=== PATIENT | male | born 1950 | race Caucasian/White ===

== ENCOUNTER 2021-05-24 10:03 | Outpatient (CLI) | payer OTHER, SELFPAY ==
--- NOTE | ~2021-05-24 | MR_ITS ---
EXAMINATION: MR humerus RT wo con DATE: 05/24/2021 12:13 INDICATION: Strain of the muscle, fascia and tendon of the long head biceps. Right arm injury 3 month s prior. TECHNIQUE: Magnetic resonance imaging (MRI) of the right upper arm from the shoulder through the supr acondylar region of the distal humerus was performed without intravenous contrast. Sequences included axial, sagittal and coronal T1-weighted FSE and fluid sensitive FSE STIR. COMPARISON: None. FINDINGS: Alignment is normal. Normal bone marrow signal throughout with no fracture or pathologic marrow repla cing process. There is a tear at the distal myotendinous junction of the long head biceps tendon with proximal retraction and accordioning of the torn tendon at the level of the mid muscle belly. There is mild surrounding muscular edema. The more proximal long head of the biceps tendon appears normally located at the intertubercular groove. The intra-articular portion of the long head biceps tendon is not diagnostically evaluated due to the large field of view on the sagittal and coronal images. The distal biceps brachii tendon is also not evaluated as it extends beyond the distal margin of the fiel d-of-view. There are postoperative changes at the greater tuberosity consistent with prior supraspina tus tendon repair. Normal alignment at the right glenohumeral joint. The anterior and posterior labru m are normal. The superior and inferior labrum along with the rotator cuff tendons not diagnostically evaluated due to the large [id number]-tz-rjcj on the sagittal and coronal images. If diagnostic assessmen t of the glenohumeral joint, labrum, rotator cuff and intra-articular long head biceps tendon are req uired would recommend a smaller field of view dedicated right shoulder MRI for further evaluation. In cidental 1.5 cm and 1.1 cm T2 hyperintense likely cysts or hemangiomas in the right hepatic lobe. IMPRESSION: 1. Tear of the distal myotendinous junction of the long head biceps tendon at the midportion of the m uscle belly. Reviewed, dictated and finalized at location A. IMPRESSION: 1. Tear of the distal myotendinous junction of the long head biceps tendon at t he midportion of the muscle belly.
== END 2021-05-24 10:04 | disposition home or self-care (01) ==
PROVIDERS: PCP Family Medicine; Visit Provider Nurse Practitioner Family
DX: S46.119A Strain of muscle, fascia and tendon of long head of biceps, unspecified arm, initial encounter (principal)
CPT/HCPCS: 73218

== ENCOUNTER 2021-08-30 02:00 | Day surgery (SDC) | payer OTHER, SELFPAY ==
[2021-08-21 13:13] VITALS: BMI 22.1
[2021-08-30 09:11] VITALS: BP 139/81; PULSE 75; RESP 16; TEMP 36.3; O2SAT 98; BMI 22.5
[2021-08-30] MEDS: LACTATED RINGERS 1,000 ML 150 ML IV CONT (09:29)
--- NOTE | 2021-08-30 09:36 | WPDGICN ---
Assessment and Plan Assessment and plan (1) Epigastric abdominal pain: Code(s): R10.13 - Epigastric pain Status: Acute Assessment and Plan: Patient has had intermittent epigastric pain for many years. Now on pantoprazole 40mg p.o. daily. Plan is for EGD to assess more thoroughly. He reports having had surgery for pyloric stenosis as an . He also has had a history of peptic ulcer disease by upper GI in the past. Currently on pantoprazole, further recommendations will be given after endoscopy. (2) History of peptic ulcer: Code(s): Z87.11 - Personal history of peptic ulcer disease Status: Acute GI Consult Note Consult date/time: 08/30/21 09:36 HPI: Dedrick Balbuena is a 71 year old male Presents for EGD. Patient has a long history of epigastric pain. He had more significant pain several weeks ago. When he was younger he had several upper GI is which suggested peptic ulcer disease. Patient currently maintained on pantoprazole 40mg p.o. daily. He denies any bleeding or weight loss. He reports as an he had pyloric stenosis requiring surgery. Family history is noncontributory. Review of Systems Review of Systems: All systems reviewed & are unremarkable except as noted in HPI and below PMFSH Past Medical History Medical History Biceps rupture, proximal BMI 22.0-22.9, adult Degenerative joint disease of cervical and lumbar spine Duodenal ulcer Enlarged prostate Fatigue Hypertension Pain of right humerus Rotator cuff tendonitis Rupture of proximal biceps tendon Family History Family History Other Bone cancer Lung cancer Social History Social History Smoking status: Never smoker Alcohol intake: current Alcohol use details: Socially at holidays Living arrangements: with family Spiritual care concerns: No Meds Home Medications and Allergies Home Medications Medication Instructions Recorded Confirmed Type celecoxib 200 mg capsule 200 mg PO BID #60 cap 12/27/20 08/21/21 Rx tlvwzrqy-broyxsbj-nglrf acid 400 1 tablet PO DAILY #30 tablet 12/27/20 08/21/21 Rx mcg-vit K 20 mcg-lycop 300 mcg tablet pregabalin 150 mg capsule 150 mg PO BID 12/27/20 08/21/21 History tamsulosin 0.4 mg capsule 0.4 mg PO DAILY #30 cap 12/27/20 08/21/21 Rx vit C 250 mg-vit E 90 mg-zinc 40 1 tablet PO BID #30 cap 12/27/20 08/21/21 Rx mg-copper 1 lq-ypxhjy-tptsoo capsule aspirin 81 mg tablet,delayed 81 mg PO DAILY 05/05/21 08/21/21 History release amlodipine 5 mg tablet 5 mg PO DAILY 06/27/21 08/21/21 History amitriptyline 10 mg PO DAILY 08/21/21 08/21/21 History omega-3 fatty acids-vitamin E 1 cap PO DAILY 08/21/21 08/21/21 History [Fish Oil] pantoprazole 40 mg PO DAILY 08/21/21 08/21/21 History Allergies Allergy/AdvReac Type Severity Reaction Status Date / Time Sulfa (Sulfonamide Allergy Mild Unknown Verified 08/30/21 09:10 Antibiotics) Vital Signs Vital Signs - 24 hr 08/30/21 09:11 Temperature 97.4 F L Pulse Rate 75 Respiratory Rate 16 Blood Pressure 139/81 Pulse Oximetry 98 Exam Narrative: Physical exam reveals patient to be alert. Vital signs stable. HEENT exam is unremarkable. Patient is anicteric. Lungs are clear to auscultation and percussion. Heart is without murmur or extra sounds. Abdominal exam bowel sounds are present soft nontender with no organomegaly.
--- NOTE | 2021-08-30 09:38 | P.PNAN_ITS ---
Anes - Initial Pre Proc Eval Procedure: Operation Date: 08/30/21 10:00 Proposed Procedures p Esophagogastroduodenoscopy - Lorenzo Avila MD Date/Time: 08/30/21 09:38 Surgeon: Lorenzo Avila MD Pre Op Diagnosis: epigastric pain Patient Data Age: 71 Gender: M Height: 1.7 m Weight: 65.3 kg Last Vital Signs Temp 97.4 F L 08/30/21 09:11 Pulse 75 08/30/21 09:11 Resp 16 08/30/21 09:11 BP 139/81 08/30/21 09:11 Pulse Ox 98 08/30/21 09:11 Allergies Allergy/AdvReac Type Severity Reaction Status Date / Time Sulfa (Sulfonamide Allergy Mild Unknown Verified 08/30/21 09:10 Antibiotics) Home Medications Medication Instructions Recorded Confirmed Type celecoxib 200 mg capsule 200 mg PO BID #60 cap 12/27/20 08/21/21 Rx zmbbxnek-joxyjlau-pctps acid 400 1 tablet PO DAILY #30 tablet 12/27/20 08/21/21 Rx mcg-vit K 20 mcg-lycop 300 mcg tablet pregabalin 150 mg capsule 150 mg PO BID 12/27/20 08/21/21 History tamsulosin 0.4 mg capsule 0.4 mg PO DAILY #30 cap 12/27/20 08/21/21 Rx vit C 250 mg-vit E 90 mg-zinc 40 1 tablet PO BID #30 cap 12/27/20 08/21/21 Rx mg-copper 1 jl-imqfca-rapglr capsule aspirin 81 mg tablet,delayed 81 mg PO DAILY 05/05/21 08/21/21 History release amlodipine 5 mg tablet 5 mg PO DAILY 06/27/21 08/21/21 History amitriptyline 10 mg PO DAILY 08/21/21 08/21/21 History omega-3 fatty acids-vitamin E 1 cap PO DAILY 08/21/21 08/21/21 History [Fish Oil] pantoprazole 40 mg PO DAILY 08/21/21 08/21/21 History Patient hx anesthesia problems: none Family hx anesthesia problems: none Results Review: All pre-operative results and documents have been reviewed as part of the pre-operative evaluation. [facility] Past Medical History Medical History Biceps rupture, proximal BMI 22.0-22.9, adult Degenerative joint disease of cervical and lumbar spine Duodenal ulcer Enlarged prostate Fatigue Hypertension Pain of right humerus Rotator cuff tendonitis Rupture of proximal biceps tendon Family History Family History Other Bone cancer Lung cancer Social History Social History Smoking status: Never smoker Alcohol intake: current Alcohol use details: Socially at holidays Living arrangements: with family Spiritual care concerns: No Anes - Eval Final PreProcedure Day of Procedure 08/30/21 09:38 Patient weight: normal Lungs: clear to auscultation Airway: Mallampati scale class II Neurological: alert and oriented Last oral intake: >/= 8 hours ASA classification: II Emergent: no Anesthetic plan: proceed Anesthesia type and monitoring: general GIVS and standard monitoring Results Review: All pre-operative results and documents have been reviewed as part of the pre-operative evaluation. Informed Consent: The patient's anesthetic plan and its attendant risks and benefits were discussed with the patient/family/POA. Questions were solicited and answers provided to the satisfaction of the patient/family/POA.
[2021-08-30 09:55] VITALS: BP 124/83; PULSE 77; RESP 17; O2SAT 98
[2021-08-30 10:05] VITALS: BP 130/88; PULSE 70; RESP 17; O2SAT 100
[2021-08-30 10:15] VITALS: BP 140/93; PULSE 65; RESP 12; O2SAT 100
== END 2021-08-30 10:30 | disposition home or self-care (01) ==
PROVIDERS: PCP Family Medicine; Visit Provider Internal Medicine Gastroenterology
PROC: 0DJ08ZZ Inspection of Upper Intestinal Tract, Via Natural or Artificial Opening Endoscopic (ICD-10-PCS; CPT 43235; principal; 2021-08-30 10:00)
DX: R10.13 Epigastric pain (principal); Z87.11 Personal history of peptic ulcer disease; I10 Essential (primary) hypertension; N40.0 Benign prostatic hyperplasia without lower urinary tract symptoms; Z79.82 Long term (current) use of aspirin
CPT/HCPCS: 43239; 87081; J2001; J2704; J7120

== ENCOUNTER → 2022-04-10 09:11 | Outpatient (CLI) | payer OTHER, SELFPAY ==
--- NOTE | ~2022-04-10 | XR_ITS ---
XR lumbar spine 2-3V DATE: 04/10/2022 09:36 INDICATION: Low back pain TECHNIQUE: AP, lateral, coned lateral lumbosacral views COMPARISON: 11/14/2016 lumbar spine FINDINGS: Diffuse osteopenia. There is severe degenerative disc disease at L4-5 and L5-S1. There is grade 1 anterolisthesis at L5-S1, stable since. Prominent degenerative change at the apophyseal joints in the lower lumbar and lumbosacral area. L5 s pondylolysis may be present. The sacroiliac joints are intact. Abdominal aortic calcification without apparent aneurysm. IMPRESSION: Severe degenerative disc disease at L4-5 and L5-S1; the L4-5 disc space is dramatically i ncreased compared to 11/14/2016 Grade 1 anterolisthesis at L5-S1, possibly due to L5 pars defects Osteopenia Reviewed, dictated and finalized at location B. IMPRESSION: Severe degenerative disc disease at L4-5 and L5-S1; the L4-5 disc s pace is dramatically increased compared to 11/14/2016 Grade 1 anterolisthesis at L5-S1, possibly due to L5 pars defects Osteopenia
== END ==
PROVIDERS: PCP Physician Assistant Medical; Visit Provider Physician Assistant Medical
DX: M47.817 Spondylosis without myelopathy or radiculopathy, lumbosacral region (principal)
CPT/HCPCS: 72100

== ENCOUNTER 2022-04-13 12:57 | Outpatient (CLI) | payer OTHER, SELFPAY ==
--- NOTE | ~2022-04-13 | DEXA_ITS ---
Bone Density Report Name: MAYANK FELDER Age: 71 Sex: Male Ethnicity: White Date of : 1950 Indication: screening for osteoporosis; Referring Provider: TAYE MOMIN Study: Bone densitometry was performed. Exam Date: April 13, 2022 Accession number: [id number] Bone Density: Region BMD T-score Z-score Classification AP Spine(L1, L2, L3) 0.877 -1.8 -0.8 Osteopenia Femoral Neck (Left) 0.588 -2.5 -1.2 Osteoporosis Total Hip (Left) 0.776 -1.7 -0.9 Osteopenia Femoral Neck (Right) 0.620 -2.3 -1.0 Osteopenia Total Hip (Right) 0.763 -1.8 -1.0 Osteopenia Total Hip Mean 0.769 -1.8 -1.0 Osteopenia World Health Organization criteria for BMD impression classify patients as: Normal (T-score at or above -1.0), Osteopenia (T-score between -1.0 and -2.5), or Osteoporosis (T-score at or below -2.5). 10-year Fracture Risk: FRAX not reported because: Some T-score for Spine Total or Hip Total or Femoral Neck at or below -2.5 Clinical Information Provided by Patient: Patient maximum height was 67 Impression: The patient has osteoporosis, based on the Left Femoral Neck T-score. Discussion: INCREASED RISK OF FRACTURE. BONE DENSITY IS UNDESIRABLY LOW AT ONE OR MORE SKELETAL SITES, CONSISTENT WITH OSTEOPOROSIS. This patient's lowest T-score meets the World Health Organization's (WHO) criteria for osteoporosis at one or more sites (T-score -2.5 or below). In untreated patients, the risk of osteoporotic fracture increases approximately two-fold for each 1.0 SD decrease in T-score. Low bone density is not the only risk factor for fracture; also consider factors such as patient's age, frailty or poor health, risk of falling, risk of injury, previous osteoporotic fracture, family history of osteoporosis, cigarette smoking, low body weight, etc. Not everyone with low bone mineral density has osteoporosis; osteomalacia and other metabolic bone disorders should also be considered. Patients who have osteoporosis should be evaluated for specific diseases and conditions (secondary causes) that may cause or contribute to bone loss. The National Osteoporosis Foundation (NOF) recommends pharmacologic intervention for men with BMD at this level (a T-score of -2.5 or below). The patient should follow a healthful lifestyle (good nutrition with adequate calcium and vitamin D, and appropriate weight-bearing exercise). Follow-Up: Consider repeating this study in 2 years to reassess this patient's status, or sooner if there is some new clinical indication. Reported by: ANAMARIA on 04/13/2022 1:20:00 PM. Reviewed, dictated and finalized at location A. EVAN
== END 2022-04-13 12:58 | disposition home or self-care (01) ==
PROVIDERS: PCP Family Medicine; Visit Provider Physician Assistant Medical
DX: M85.88 Other specified disorders of bone density and structure, other site (principal); M81.0 Age-related osteoporosis without current pathological fracture; M85.851 Other specified disorders of bone density and structure, right thigh
CPT/HCPCS: 77080

== ENCOUNTER → 2022-04-26 08:46 | Outpatient (CLI) | payer OTHER, SELFPAY ==
--- NOTE | ~2022-04-26 | MR_ITS ---
EXAMINATION: MR lumbar spine wo con DATE: 04/26/2022 09:10 INDICATION: Degenerative disc disease with chronic worsening low back pain and bilateral leg weakness TECHNIQUE: Magnetic resonance imaging (MRI) of the lumbar spine was performed without intravenous con trast. Sequences included sagittal T2-weighted FSE, sagittal T2-weighted FS FSE, sagittal T1-weighted FSE, and axial T2-weighted FSE. COMPARISON: 04/10/2022 and 11/14/2016 FINDINGS: L5 spondylolysis with chronic bilateral pars interarticularis defects and 8 mm anterolisthesis of L5 on S1. There is severe associated disc height loss at L5-S1 with remodeling of the endplates and like ly secondary 20% posterior vertebral body height loss at L5. Additional severe disc height loss with degenerative endplate remodeling and fibrovascular endplate changes at L4-L5. Marrow signal is otherw ise normal. The more cephalad vertebral body and disc heights are normal. The conus medullaris termin ates at L2. There is normal signal in the caudal spinal cord. 2.8 cm cyst at the upper pole of the le ft kidney. The following disc levels are specifically discussed: T12-L1: The disc does not extend beyond the endplate margin. There is mild bilateral facet joint oste oarthritis. There is no neural foraminal stenosis. There is no central canal stenosis. L1-L2: Disc is mildly bulging. There is mild bilateral facet joint osteoarthritis. There is mild left neural foraminal stenosis. There is no central canal stenosis. L2-L3: Disc is mildly bulging. There is mild right facet joint osteoarthritis. There is mild bilatera l neural foraminal stenosis. There is minimal central canal stenosis. L3-L4: Disc is mildly bulging. There is hypertrophy of the ligamentum flavum. There is mild bilatera l facet joint osteoarthritis. There is mild bilateral neural foraminal stenosis. There is mild centra l canal stenosis. L4-L5: Annular fissure and small posterior disc osteophyte complex. There is hypertrophy of the ligam entum flavum. There is severe bilateral facet joint osteoarthritis. There is moderate bilateral neur al foraminal stenosis. There is mild to moderate central canal stenosis. L5-S1: Annular fissure with minimal material overlying the otherwise uncovered posterior aspect of th e S1 endplate. There is mild hypertrophy of the ligamentum flavum. Along the bilateral pars interarti cularis defects there is moderate bilateral facet joint osteoarthritis. There is severe bilateral calos ral foraminal stenosis with the exiting L5 nerve roots appearing compressed between the posterolatera l margins of the superior endplate of S1 and the pedicles of L5. There is mild central canal stenosis . IMPRESSION: 1. Severe lower lumbar spondylosis with chronic L5 spondylolysis and grade 1 anterolisthesis of L5 on S1. Reviewed, dictated and finalized at location B. IMPRESSION: 1. Severe lower lumbar spondylosis with chronic L5 spondylolysis and grade 1 an terolisthesis of L5 on S1.
== END ==
PROVIDERS: PCP Family Medicine; Visit Provider Physician Assistant Medical
DX: G89.29 Other chronic pain (principal); M51.36 Other intervertebral disc degeneration, lumbar region; M54.50 Low back pain, unspecified; M85.80 Other specified disorders of bone density and structure, unspecified site; M47.816 Spondylosis without myelopathy or radiculopathy, lumbar region; M43.17 Spondylolisthesis, lumbosacral region
CPT/HCPCS: 72148

== ENCOUNTER → 2023-05-21 09:59 | Outpatient (CLI) | payer OTHER, SELFPAY ==
--- NOTE | ~2023-05-21 | XR_ITS ---
XR_[id number]_CR 05/21/2023 10:18 Indication: Cervicalgia Procedure: 4 view cervical spine Comparison: No prior studies for comparison. Findings: There is mild disc narrowing at C4-5. There is significant disc narrowing at C6-7 with endp late degenerative change. There is also facet hypertrophy at this level. Lung apices are normal. [place] toid process is grossly unremarkable, although evaluation is limited. No prevertebral soft tissue swe lling. There is mild additional levels of degenerative change of the facet and uncinate processes. Impression: 1: Mild-moderate cervical spondylosis, most advanced at C6-7. Reviewed, dictated and finalized at location L. Impression: 1: Mild-moderate cervical spondylosis, most advanced at C6-7.
== END ==
PROVIDERS: PCP Family Medicine; Visit Provider Physician Assistant Medical
DX: M54.2 Cervicalgia (principal); M43.02 Spondylolysis, cervical region
CPT/HCPCS: 72040

== ENCOUNTER 2024-09-09 13:38 | Outpatient (CLI) | payer OTHER, SELFPAY ==
--- NOTE | ~2024-09-09 | MR_ITS ---
EXAMINATION: MR lumbar spine wo con DATE: 09/09/2024 14:14 INDICATION: Low back pain. Lumbar radiculopathy. TECHNIQUE: Magnetic resonance imaging (MRI) of the lumbar spine was performed without intravenous con trast. Sequences included sagittal T2-weighted FSE, sagittal T2-weighted FS FSE, sagittal T1-weighted FSE, and axial T2-weighted FSE. COMPARISON: Lumbar spine MRI 04/26/2022 FINDINGS: There is 6 degrees levocurvature of lumbar spine. There are chronic bilateral L5 pars defec ts. There is 10 mm anterolisthesis of L5 on S1. There is mild chronic height loss of L5 vertebral bod y posteriorly. There is moderately decreased disc height at L3-L4 and severely decreased disc height at L4-L5 and L5-S1. The distal spinal cord signal intensity is normal. The conus medullaris is at L1- L2. The following disc levels are specifically discussed: L1-L2: The disc is bulging. There is mild bilateral facet joint osteoarthritis. There is no neural fo raminal stenosis. There is mild central canal stenosis. L2-L3: The disc is bulging. There is moderate bilateral facet joint osteoarthritis. There is mild dwayne ateral neural foraminal stenosis. There is mild central canal stenosis. L3-L4: The disc is bulging. There is moderate right and severe left facet joint osteoarthritis. There is mild bilateral neural foraminal stenosis. There is mild central canal stenosis. L4-L5: The disc is bulging and has an annular fissure. There is severe bilateral facet joint osteoart hritis. There is moderate bilateral neural foraminal stenosis. There is mild central canal stenosis. L5-S1: The disc does not extend beyond the endplate margin. There is severe bilateral facet joint ost eoarthritis. There is moderate right and severe left neural foraminal stenosis. There is mild central canal stenosis. IMPRESSION: 1. Severe lumbar spondylosis, mildly worsened from 04/26/2022. 2. Chronic bilateral L5 pars defects with grade 2 anterolisthesis of L5 on S1. Reviewed, dictated and finalized at location A.
== END 2024-09-09 13:39 | disposition home or self-care (01) ==
LOC: GOSHIMG 13:39
PROVIDERS: PCP Family Medicine; Visit Provider Nurse Practitioner Family
DX: M47.816 Spondylosis without myelopathy or radiculopathy, lumbar region (principal); M43.17 Spondylolisthesis, lumbosacral region; M89.78 Major osseous defect, other site
CPT/HCPCS: 72148